=== PATIENT | male | born 1950 | race Caucasian/White ===

== ENCOUNTER 2016-10-29 14:35 | Emergency (ER) | payer MEDICARE, BC ==
[2016-10-29] MEDS ORDERED: MECLIZINE 12.5 MG TAB PO STA (16:27)
[2016-10-29 16:45] LABS: Basophils % (A) 1 %; CH 31.7; CHCM 34.9; Eosinophils # (A) 0.2 k/uL (0-0.7); Eosinophils % (A) 2 %; HCT 45.2 % (39.0-53.0); HGB 15.6 gm/dL (13.0-17.5); Luc # (Auto) 0.13; Luc % (Auto) 2; Lymphocytes # (A) 1.8 k/uL (1.0-4.8); Lymphocytes % (A) 24 %; MCH 31.4 pg (25.0-35.0); MCHC 34.5 g/dL (31.0-37.0); MCV 91.2 fL (80.0-100.0); Mean Platelet Volume 7.4; Monocytes # (A) 0.5 k/uL (0-1.0); Monocytes % (A) 6 %; Neutrophils % (A) 66 %; RBC 4.96 m/uL (4.30-5.90); RDW 13.2 % (11.5-15.5); WBC 7.6 k/uL (3.8-10.6); WBC (Perox) 7.04
[2016-10-29 16:53] LABS: ALT 25 U/L (21-72); AST 21 U/L (17-59); Alkaline Phosphatase 54 U/L (38-126); Anion Gap 10 mmol/L; Blood Urea Nitrogen 13 mg/dL (9-20); Calcium 9.8 mg/dL (8.4-10.2); Carbon Dioxide 24 mmol/L (22-30); Chloride 107 mmol/L (98-107); Glucose 81 mg/dL (74-99); Magnesium 2.3 mg/dL (1.6-2.3); Non-African American GFR(MDRD) >60 (>60 ml/min/1.73 sqM); Potassium 4.4 mmol/L (3.5-5.1); Sodium 141 mmol/L (137-145); Total Bilirubin 0.5 mg/dL (0.2-1.3); Total Protein 7.9 g/dL (6.3-8.2)
--- NOTE | 2016-10-29 16:55 | ED ---
General Adult HPI - General Chief complaint: Chest Pain Stated complaint: Chest Pain Time Seen by Provider: 10/29/16 16:13 Source: patient, RN notes reviewed, old records reviewed Mode of arrival: ambulatory Limitations: no limitations - History of Present Illness Initial comments: Chief complaint history of present illness a 66-year-old male to complaint of chest discomfort this morning. Started approximately 8 AM. He also has had vertigo for 3 weeks. Slightly very difficulty laying in bed. The vertigo was subsided. Discomfort to his chest been increasing and decreasing for several weeks if not months. Slightly burning and tight sensation. Recently diagnosed with a 4 cm abdominal aortic aneurysm. No abdominal pain. - Related Data Home Medications Medication Instructions Recorded Confirmed Atenolol [Tenormin] 50 mg PO BID 10/29/16 10/29/16 HYDROcodone/APAP 7.5-325MG [[place] 1 tab PO TID 10/29/16 10/29/16 7.5-325] Simvastatin [Zocor] 20 mg PO HS 10/29/16 10/29/16 Previous Rx's Medication Instructions Recorded Meclizine [Antivert] 25 mg PO TID #30 tab 10/29/16 Allergies Allergy/AdvReac Type Severity Reaction Status Date / Time No Known Allergies Allergy Verified 10/29/16 14:53 Review of Systems ROS Statement: Those systems with pertinent positive or pertinent negative responses have been documented in the HPI. Review of systems. Patient denies any visual acuity changes no headache slight dizziness when he moves his head much worse last night. No chest pain at this time no shortness of breath discomfort was not reproducible earlier. No GI/ problems complaints no neuro deficits. The patient denies any other problems all systems are reviewed. Past medical problems significant for coronary artery disease but no stents after having had a cardiac catheterization several years ago. Also hyperlipidemia, hypertension rheumatoid arthritis recently diagnosed abdominal aortic aneurysm on abdominal x-ray while having his back investigated. He has chronic back pain. As noted above had a heart catheterization without stenting. Is a joint replacements. Including a femur fracture carpal tunnel bilaterally. He does smoke strongly encouraged to stop denies alcohol use. ROS Other: All systems not noted in ROS Statement are negative. Past Medical History Past Medical History: Coronary Artery Disease (CAD), Hyperlipidemia, Hypertension, Rheumatoid Arthritis (RA) Additional Past Medical History / Comment(s): abd aneurysm,chronic back and hip pain History of Any Multi-Drug Resistant Organisms: None Reported Past Surgical History: Heart Catheterization, Joint Replacement Additional Past Surgical History / Comment(s): rt hip, lt knee,eugenie carpal tunnel Past Psychological History: Anxiety Smoking Status: Current every day smoker Past Alcohol Use History: None Reported Past Drug Use History: Marijuana General Exam - General Exam Comments Initial Comments: General: The patient is awake and alert, in no distress, and does not appear acutely ill. If complaint chest discomfort left side and dizziness for 3 weeks. Vital signs shows temperature 98.3 pulse 75 respiratory rate 20 pulse ox 95% room air blood pressure 205/97. Currently chest pain-free. Eye: Pupils are equal, round and reactive to light, extra-ocular movements are intact ; there is normal conjunctiva bilaterally. No signs of icterus. Ears, nose, mouth and throat: There are moist mucous membranes and no oral lesions. Neck: The neck is supple, there is no tenderness , no anterior cervical lymphadenopathy, no JVD. Cardiovascular: There is a regular rate and rhythm. No murmur, rub or gallop is appreciated. Respiratory: Lungs are clear to auscultation, respirations are non-labored, breath sounds are equal. No wheezes, stridor, rales, or rhonchi. Gastrointestinal: Soft, non-distended, non-tender abdomen without masses or organomegaly noted. There is no rebound or guarding present. No CVA tenderness. Bowel sounds are unremarkable. Back: There is no tenderness to palpation in the midline. There is no obvious deformity. No rashes noted. Musculoskeletal: Normal ROM, no tenderness, There is no pedal edema. There is no calf tenderness or swelling. Sensation intact. . Neurological: CN II-XII intact, There are no obvious motor or sensory deficits. Coordination appears grossly intact. Speech is normal. No focal or lateralizing findings. Dizziness increases with head movement. Skin: Skin is warm and dry and no rashes or lesions are noted. Limitations: no limitations Course Vital Signs 10/29/16 10/29/16 10/29/16 14:49 16:40 16:52 Temperature 98.3 F Pulse Rate 75 68 68 Respiratory 20 17 Rate Blood Pressure 205/97 154/92 180/96 O2 Sat by Pulse 95 98 97 Oximetry 10/29/16 17:23 Temperature Pulse Rate 67 Respiratory 99 H Rate Blood Pressure 148/89 O2 Sat by Pulse Oximetry EKG Findings - EKG Comments: EKG Findings:: EKG was done and reviewed compared to an EKG that had been performed at the doctor's office just prior to coming emergency room. Today's EKG showed normal sinus rhythm age undetermined inferior infarct. Today's Q waves significantly larger than that which was available or noticed on the EKG done in the office several hours ago. The patient's chest pain-free. Medical Decision Making - Medical Decision Making . The patient's white count 7.6 hemoglobin 15 hematocrit of 45 and INR 1.0. Potassium 4.4 BUN 13 creatinine 0.70 GFR greater than 60. Glucose 81 troponin less than 0.012. X-ray was done no acute cardiopulmonary pathology appreciated. Mildly enlarged heart. Awaiting radiologist's final impression. Examination finds patient blood pressure 150/80 feeling better. Not dizzy. We discussed discomfort to his chest as well as vertigo. The patient be placed on meclizine 25 3 times a day for 10 days advised to follow-up with family physician return emergency room as needed. - Lab Data Result diagrams: 10/29/16 16:32 10/29/16 16:32 Lab Results 10/29/16 10/29/16 10/29/16 Range/Units 16:32 16:32 16:32 WBC 7.6 (3.8-10.6) k/uL RBC 4.96 (4.30-5.90) m/uL Hgb 15.6 (13.0-17.5) gm/dL Hct 45.2 (39.0-53.0) % MCV 91.2 (80.0-100.0) fL MCH 31.4 (25.0-35.0) pg MCHC 34.5 (31.0-37.0) g/dL RDW 13.2 (11.5-15.5) % Plt Count 242 (150-450) k/uL Neutrophils % 66 % Lymphocytes % 24 % Monocytes % 6 % Eosinophils % 2 % Basophils % 1 % Neutrophils # 5.0 (1.3-7.7) k/uL Lymphocytes # 1.8 (1.0-4.8) k/uL Monocytes # 0.5 (0-1.0) k/uL Eosinophils # 0.2 (0-0.7) k/uL Basophils # 0.0 (0-0.2) k/uL PT (9.0-12.0) sec INR (<1.1) APTT (22.0-30.0) sec Sodium 141 (137-145) mmol/L Potassium 4.4 (3.5-5.1) mmol/L Chloride 107 (98-107) mmol/L Carbon Dioxide 24 (22-30) mmol/L Anion Gap 10 mmol/L BUN 13 (9-20) mg/dL Creatinine 0.78 (0.66-1.25) mg/dL Est GFR (MDRD) Af Amer >60 (>60 ml/min/1.73 sqM) Est GFR (MDRD) Non-Af >60 (>60 ml/min/1.73 sqM) Glucose 81 (74-99) mg/dL Calcium 9.8 (8.4-10.2) mg/dL Magnesium 2.3 (1.6-2.3) mg/dL Total Bilirubin 0.5 (0.2-1.3) mg/dL AST 21 (17-59) U/L ALT 25 (21-72) U/L Alkaline Phosphatase 54 (38-126) U/L Total Creatine Kinase 129 (55-170) U/L CK-MB (CK-2) 1.8 (0.0-2.4) ng/mL CK-MB (CK-2) Rel Index 1.4 Troponin I <0.012 (0.000-0.034) ng/mL Total Protein 7.9 (6.3-8.2) g/dL Albumin 4.6 (3.5-5.0) g/dL 10/29/16 Range/Units 16:32 WBC (3.8-10.6) k/uL RBC (4.30-5.90) m/uL Hgb (13.0-17.5) gm/dL Hct (39.0-53.0) % MCV (80.0-100.0) fL MCH (25.0-35.0) pg MCHC (31.0-37.0) g/dL RDW (11.5-15.5) % Plt Count (150-450) k/uL Neutrophils % % Lymphocytes % % Monocytes % % Eosinophils % % Basophils % % Neutrophils # (1.3-7.7) k/uL Lymphocytes # (1.0-4.8) k/uL Monocytes # (0-1.0) k/uL Eosinophils # (0-0.7) k/uL Basophils # (0-0.2) k/uL PT 9.9 (9.0-12.0) sec INR 1.0 (<1.1) APTT 23.7 (22.0-30.0) sec Sodium (137-145) mmol/L Potassium (3.5-5.1) mmol/L Chloride (98-107) mmol/L Carbon Dioxide (22-30) mmol/L Anion Gap mmol/L BUN (9-20) mg/dL Creatinine (0.66-1.25) mg/dL Est GFR (MDRD) Af Amer (>60 ml/min/1.73 sqM) Est GFR (MDRD) Non-Af (>60 ml/min/1.73 sqM) Glucose (74-99) mg/dL Calcium (8.4-10.2) mg/dL Magnesium (1.6-2.3) mg/dL Total Bilirubin (0.2-1.3) mg/dL AST (17-59) U/L ALT (21-72) U/L Alkaline Phosphatase (38-126) U/L Total Creatine Kinase (55-170) U/L CK-MB (CK-2) (0.0-2.4) ng/mL CK-MB (CK-2) Rel Index Troponin I (0.000-0.034) ng/mL Total Protein (6.3-8.2) g/dL Albumin (3.5-5.0) g/dL Disposition Clinical Impression: Vertigo Disposition: HOME SELF-CARE Condition: Good Instructions: Vertigo (ED) Additional Instructions: Take meclizine 3 times daily for 10 days. Rest relax follow-up with family physician continue with here antihypertensives. Return emergency room with any changes. Prescriptions: Meclizine [Antivert] 25 mg PO TID #30 tab Referrals: Shawna Felipe III, MD [Primary Care Provider] - 1-2 days Time of Disposition: 17:58
[2016-10-29] MEDS ORDERED: cloNIDine HCL 0.2 MG TAB PO STA (17:00)
[2016-10-29 17:07] LABS: Creatine Kinase 129 U/L (55-170)
[2016-10-29 17:10] LABS: Partial Thromboplastin Time 23.7 sec (22.0-30.0); Prothrombin Time 9.9 sec (9.0-12.0)
[2016-10-29 17:19] LABS: Creatine Kinase MB 1.8 ng/mL (0.0-2.4); Troponin I <0.012 ng/mL (0.000-0.034)
[2016-10-29 18:10] VITALS: BP 157/92; PULSE 70; RESP 18
--- NOTE | 2016-10-29 18:11 | XR ---
Exam: FILM CXR Chest PA and lateral views INDICATION: Chest pain COMPARISON: None FINDINGS: The cardiomediastinal silhouette is within normal limits. Lungs are clear. No pleural effusions. Bony elements are within normal limits for age. No acute osseous abnormality. IMPRESSION: No acute cardiopulmonary disease. Lungs are clear. Heart size normal.
[2016-10-29 18:13] VITALS: TEMP 98
== END 2016-10-29 18:12 | disposition home or self-care (01) ==
LOC: EC 14:35
DX: I51.7 Cardiomegaly (principal); R42 Dizziness and giddiness; E78.5 Hyperlipidemia, unspecified; I10 Essential (primary) hypertension; G89.29 Other chronic pain; F41.9 Anxiety disorder, unspecified; F17.200 Nicotine dependence, unspecified, uncomplicated; Z79.891 Long term (current) use of opiate analgesic; Z79.899 Other long term (current) drug therapy; Z95.818 Presence of other cardiac implants and grafts
CPT/HCPCS: 36415; 71020; 80053; 82550; 82553; 83735; 84484; 85025; 85610; 85730; 93005; 99285

== ENCOUNTER 2018-09-17 10:53 | Day surgery (SDC) | payer BC, MEDICARE ==
[2018-09-12 09:43] VITALS: BMI 31.5
[~2018-09-17 10:53] MED LIST: LACTATED RINGERS 1,000 ML IV SCH; LIDOCAINE 1% 20 ML VIAL (10MG/ML) FOR IV START INTRADERMA PRN
[2018-09-17 11:13] VITALS: TEMP 97.6
[2018-09-17] MEDS ORDERED: PROPOFOL 10 MG/ML 20 ML VIAL IV ONE (12:24)
--- NOTE | 2018-09-17 12:28 | P.GSHP ---
History of Present Illness H&P Date: 09/17/18 Chief Complaint: Blood in stool Patient here today for colonoscopy. Recent stool test showed blood in stool. Family history of liver cancer but no colon cancer. Patient states he has hemorrhoids that bleed occasionally. No previous colonoscopy. Past Medical History Past Medical History: Coronary Artery Disease (CAD), Hyperlipidemia, Hypertension, Rheumatoid Arthritis (RA) Additional Past Medical History / Comment(s): 5CM abd aneurysm MEASURED ON ULTRA SOUND BY DR. PADILLA 09/11/18- 6 MONTHS AGO WAS MEASURED AT 4/.8 CM. chronic back and hip pain. positive cologard test. HEMORRHOIDS History of Any Multi-Drug Resistant Organisms: None Reported Past Surgical History: Heart Catheterization, Joint Replacement Additional Past Surgical History / Comment(s): rt [place], lt knee sx, eugenie carpal tunnel. lt wrist sx, sx for fx femur after hip sx Past Anesthesia/Blood Transfusion Reactions: No Reported Reaction Smoking Status: Current every day smoker - Past Family History Brother(s) Family Medical History: Cancer Additional Family Medical History / Comment(s): 2 brothers that from liver cancer AGE 45 AND 50 POSSIBLY R/T TRANSFUSIONS Medications and Allergies Home Medications Medication Instructions Recorded Confirmed Type Atenolol [Tenormin] 50 mg PO DAILY 10/29/16 09/17/18 History HYDROcodone/APAP 7.5-325MG [[place] 1 tab PO TID 10/29/16 09/17/18 History 7.5-325] Atorvastatin [Lipitor] 10 mg PO HS 09/12/18 09/17/18 History Ibuprofen [Motrin] 600 mg PO Q8HR PRN 09/12/18 09/17/18 History Lisinopril [Zestril] 5 mg PO DAILY 09/12/18 09/17/18 History Allergies Allergy/AdvReac Type Severity Reaction Status Date / Time No Known Allergies Allergy Verified 09/17/18 11:05 Surgical - Exam Vital Signs Temp Pulse Resp BP Pulse Ox 97.6 F 101 H 16 145/78 96 09/17/18 11:11 09/17/18 11:11 09/17/18 11:11 09/17/18 11:11 09/17/18 11:11 Physical exam: General: Well-developed, well-nourished HEENT: Normocephalic, sclerae nonicteric Abdomen: Nontender, nondistended Extremities: No edema Neuro: Alert and oriented Assessment and Plan (1) Blood in stool Narrative/Plan: Will proceed with colonoscopy at this time Current Visit: Yes Status: Acute Code(s): K92.1 - MELENA SNOMED Code(s): 092781003
--- NOTE | 2018-09-17 12:47 | P.PCN ---
Date of Procedure: 09/17/18 Procedure(s) Performed: PREOPERATIVE DIAGNOSIS: Blood in stool POSTOPERATIVE DIAGNOSIS: Ascending colon polyp, rectal polyp, diverticulosis PROCEDURE: Colonoscopy with snare polypectomy ANESTHESIA: MAC SURGEON: Darrion Jamison M.D. SPECIMENS: Polyps ENDOSCOPIC PROCEDURE: The patient was placed on the endoscopy table in the left decubitus position. The Olympus colonoscope was inserted into the anus and passed under direct visualization to the base of the cecum. The appendiceal orifice was visualized. From that point the scope was slowly withdrawn inspecting all surfaces carefully. There were no neoplastic inflammatory or polypoid lesions throughout the cecum. In the mid ascending colon a sessile polyp measuring approximately 1.5 cm was removed in a piecemeal fashion using the snare with cautery technique. Tissue was sent for evaluation. The remainder of the ascending transverse descending and sigmoid colon appeared normal. There was a rectal polyp identified and removed in a similar fashion. There was mild left sided diverticulosis. The patient's prep was slightly suboptimal. Digital rectal examination was normal. The patient was taken to the recovery room in stable condition per anesthesia guidelines. RECOMMENDATIONS: Wait biopsy results. Recommend follow-up colonoscopy 6 months.
[2018-09-17 13:07] VITALS: BP 131/84; PULSE 84; RESP 18
== END 2018-09-17 13:25 | disposition home or self-care (01) ==
LOC: ORWHC2ENDO 10:53
PROVIDERS: ATTEND Surgery
DX: D12.2 Benign neoplasm of ascending colon (principal); D12.8 Benign neoplasm of rectum; K57.30 Diverticulosis of large intestine without perforation or abscess without bleeding; I25.10 Atherosclerotic heart disease of native coronary artery without angina pectoris; I10 Essential (primary) hypertension; F17.210 Nicotine dependence, cigarettes, uncomplicated; K21.9 Gastro-esophageal reflux disease without esophagitis; E78.5 Hyperlipidemia, unspecified; M06.9 Rheumatoid arthritis, unspecified; I71.4 Abdominal aortic aneurysm, without rupture; G89.29 Other chronic pain; M54.9 Dorsalgia, unspecified; M25.559 Pain in unspecified hip; Z80.0 Family history of malignant neoplasm of digestive organs; Z79.891 Long term (current) use of opiate analgesic; Z79.899 Other long term (current) drug therapy
CPT/HCPCS: 45385; 88305; J2704

== ENCOUNTER 2022-05-14 12:09 | Emergency (ER) | payer MEDICARE ==
[2022-05-14 12:18] VITALS: TEMP 98.5
--- NOTE | 2022-05-14 12:48 | ED ---
Chest Pain HPI - General Chief Complaint: Chest Pain Stated Complaint: dehydration, weakness Time Seen by Provider: 05/14/22 12:45 Source: patient Mode of arrival: ambulatory Limitations: no limitations - History of Present Illness Initial Comments: 71-year-old male with past medical history of rheumatoid arthritis, coronary artery disease, hypertension, abdominal aortic aneurysm with repair who presents to the emergency department reporting exertional dyspnea and chest pain. states that he has been complaining of shortness of breath and dyspnea over the weekend. He had significant chest pain yesterday and this morning. Upon arrival to the hospital he is pain free. He states that he does have coronary artery disease but denies stent placement. He does have previous history of aneurysm with repair. He denies any abdominal pain. Ripping or tearing sensation to his back. No numbness, tingling or weakness in his extremities. No fevers. Denies cough. Patient saw his accessioner on for a routine appointments. He then saw his primary care on Saturday. They were concerned and was going to order a CT of his chest however patient did not have it completed just yet. No other alleviating, precipitating or modifying factors - Related Data Home Medications Medication Instructions Recorded Confirmed HYDROcodone/APAP 7.5-325MG [[place] 1 tab PO TID 10/29/16 05/14/22 7.5-325] atenoloL [Tenormin] 50 mg PO HS 10/29/16 05/14/22 Ibuprofen [Motrin] 600 mg PO Q8HR PRN 09/12/18 05/14/22 Aspirin 81 mg PO HS 05/14/22 05/14/22 Atorvastatin [Lipitor] 20 mg PO HS 05/14/22 05/14/22 Cholecalciferol (Vitamin D3) 75 mcg PO DAILY 05/14/22 05/14/22 [Vitamin D3 (3000 Iu)] Multivitamins, Thera [Multivitamin 1 tab PO DAILY 05/14/22 05/14/22 (formulary)] Omeprazole [PriLOSEC] 20 mg PO DAILY PRN 05/14/22 05/14/22 lisinopriL [Zestril] 10 mg PO HS 05/14/22 05/14/22 Allergies Allergy/AdvReac Type Severity Reaction Status Date / Time No Known Allergies Allergy Verified 05/14/22 14:24 Review of Systems ROS Statement: Those systems with pertinent positive or pertinent negative responses have been documented in the HPI. ROS Other: All systems not noted in ROS Statement are negative. EKG Findings - EKG Comments: EKG Findings:: EKG demonstrates sinus rhythm with rate of 85. AR 144. QRS 93. QTC of 414. No acute ST segment elevations or depressions. Past Medical History Past Medical History: Coronary Artery Disease (CAD), Hyperlipidemia, Hypertension, Rheumatoid Arthritis (RA) Additional Past Medical History / Comment(s): 5CM abd aneurysm MEASURED ON ULTRA SOUND BY DR. PADILLA 09/11/18- 6 MONTHS AGO WAS MEASURED AT 4/.8 CM. chronic back and hip pain. positive cologard test. HEMORRHOIDS History of Any Multi-Drug Resistant Organisms: None Reported Past Surgical History: Heart Catheterization, Joint Replacement Additional Past Surgical History / Comment(s): rt paula, lt knee sx, eugenie carpal tunnel. lt wrist sx, sx for fx femur after hip sx Past Anesthesia/Blood Transfusion Reactions: No Reported Reaction Past Psychological History: Anxiety Smoking Status: Current every day smoker Past Alcohol Use History: None Reported Past Drug Use History: Marijuana - Past Family History Brother(s) Family Medical History: Cancer Additional Family Medical History / Comment(s): 2 brothers that from liver cancer AGE 45 AND 50 POSSIBLY R/T TRANSFUSIONS General Exam Limitations: no limitations General appearance: alert, in no apparent distress Head exam: Present: atraumatic, normocephalic, normal inspection Eye exam: Present: normal appearance, PERRL, EOMI. Absent: scleral icterus, conjunctival injection, periorbital swelling ENT exam: Present: normal exam, mucous membranes moist Neck exam: Present: normal inspection. Absent: tenderness, meningismus, lymphadenopathy Respiratory exam: Present: normal lung sounds bilaterally. Absent: respiratory distress, wheezes, rales, rhonchi, stridor Cardiovascular Exam: Present: regular rate, normal rhythm, normal heart sounds. Absent: systolic murmur, diastolic murmur, rubs, gallop, clicks GI/Abdominal exam: Present: soft, normal bowel sounds. Absent: distended, tenderness, guarding, rebound, rigid Extremities exam: Present: normal inspection, full ROM, normal capillary refill. Absent: tenderness, pedal edema, joint swelling, calf tenderness Back exam: Present: normal inspection Neurological exam: Present: alert, oriented X3, CN II-XII intact Psychiatric exam: Present: normal affect, normal mood Skin exam: Present: rash, pallor Course Vital Signs 05/14/22 05/14/22 05/14/22 12:14 12:57 12:58 Temperature 98.5 F Pulse Rate 60 83 Pulse Rate [ 87 Mill Feeder ] Respiratory 22 24 Rate Blood Pressure 86/49 88/45 O2 Sat by Pulse 95 96 Oximetry 05/14/22 05/14/22 05/14/22 13:00 13:02 13:56 Temperature Pulse Rate 86 84 75 Pulse Rate [ Mill Feeder ] Respiratory 17 24 26 H Rate Blood Pressure 88/45 107/61 81/51 O2 Sat by Pulse 95 95 97 Oximetry 05/14/22 05/14/22 05/14/22 14:00 15:00 16:00 Temperature Pulse Rate 74 77 86 Pulse Rate [ Mill Feeder ] Respiratory 13 20 13 Rate Blood Pressure 81/51 102/56 111/61 O2 Sat by Pulse 96 98 99 Oximetry 05/14/22 05/14/22 17:00 21:00 Temperature Pulse Rate 84 92 Pulse Rate [ Mill Feeder ] Respiratory 20 16 Rate Blood Pressure 126/66 O2 Sat by Pulse 96 96 Oximetry - Reevaluation(s) Reevaluation #1: Spoke with Dr. Perez. He is on his way to evaluate the patient himself 05/14/22 15:27 Reevaluation #2: Spoke with Dr. Padilla 05/14/22 15:28 Chest Pain MDM - MDM Was pt. sent in by a medical professional or institution (, PA, MACHINE GUNNER, urgent care, hospital, or senior care...) When possible be specific @ -Primary care office Did you speak to anyone other than the patient for history (EMS, parent, family, police, friend...)? What history was obtained from this source @ -, daughter Did you review nursing and triage notes (agree or disagree)? Why? @ -[I reviewed and agree with nursing and triage notes] Were old charts reviewed (outside hosp., previous admission, EMS record, old EKG, old radiological studies, urgent care reports/EKG's, senior care records)? Report findings @ -I reviewed the patient's previous hospitalizations including blood work from May 02 which demonstrated normal hemoglobin of 12.7 Differential Diagnosis (chest pain, altered mental status, abdominal pain women, abdominal pain men, vaginal bleeding, weakness, fever, dyspnea, syncope, headache, dizziness, GI bleed, back pain, seizure, CVA, palpatations, mental health)? @ Differential Chest Pain: Stable Angina, Unstable Angina, STEMI, NSTEMI Aortic Dissection, Pneumothorax, Musculoskeletal, Esophageal Spasm GERD, Cholecystitis, Pancreatitis, Zoster, this is not meant to be an all-inclusive list. EKG interpreted by me (3pts min.). @ -Yes X-rays interpreted by me (1pt min.). @ -Not done CT interpreted by me (1pt min.). @ -Yes U/S interpreted by me (1pt. min.). @ -[None done] What testing was considered but not performed or refused? (CT, X-rays, U/S, labs)? Why? @ -[None] What meds were considered but not given or refused? Why? @ -[None] Did you discuss the management of the patient with other professionals (professionals i.e. , PA, MACHINE GUNNER, lab, RT, psych nurse, forensic social worker, director trial, teacher, grants officer, welfare case worker)? Give summary @ -I discussed the management of the patient with the inside sales trainer Dr. Gaffney, Dr. Savage the oncologist, Dr. Padilla the hospitalist and two hospitalist down at [facility] Was smoking cessation discussed for >3mins.? @ -[No] Was critical care preformed (if so, how long)? @ yes, 76 minutes Were there social determinants of health that impacted care today? How? (Homelessness, low income, unemployed, alcoholism, drug addiction, transportation, low edu. Level, literacy, decrease access to med. care, care home, rehab)? @ -[No] Was there de-escalation of care discussed even if they declined (Discuss DNR or withdrawal of care, Hospice)? DNR status yes What co-morbidities impacted this encounter? (DM, HTN, Smoking, COPD, CAD, Cancer, CVA, ARF, Chemo, Hep., AIDS, mental health diagnosis, sleep apnea, morbid obesity)? Hypertension, rheumatoid arthritis Was patient admitted / discharged? Hospital course, mention meds given and route, prescriptions, significant lab abnormalities, going to OR and other pertinent info. Upon arrival the patient was placed into room 24. A thorough history and physical exam was performed. IV access is established and laboratory studies are conducted. Patient remains on continuous pulse ox and cardiac monitoring. A 12-lead EKG was performed which was unremarkable. I did start receiving laboratory studies back on the patient which demonstrates a white blood count of 65.6 and hemoglobin of 4.9. I did repeat this to confirm. Patient does have a 57% blast cells. D-dimer is 2.96. Patient is sent for CT of his chest which demonstrates multiple spiculated lesions concerning for malignancy. I did discuss this with the patient. I discussed the case with Dr. Ireland. He does present to the emergency department and evaluates the patient. We also spoke with Dr. Savage to see whether the patient can remain at our facility for evaluation. I did speak with blood bank. We have no irradiated a positive blood. It must be transported in. I did order 2 units stat for which I am told it is 2-4 hours before the blood will be available. As we do not have readily available blood products it is recommended that the patient be transferred to an outside facility that does have a larger blood supply. I called [facility] and spoke with Dr. Mcneal and . I do accept the patient for transfer at 1634 and 1644. We do wait a significant period of time before we are awarded to bed number. Patient is formally accepted at 2030 into the ICU and will be transferred via EMS. At this time but has still not arrived for the patient's and we are told it is still another hour before arrival. Patient did receive 2 g of cefepime, 1500 mg of vancomycin and a dose of Vfend. Undiagnosed new problem with uncertain prognosis? @ -Yes Drug Therapy requiring intensive monitoring for toxicity (Heparin, Nitro, Insulin, Cardizem)? @ -No Were any procedures done? @ -[No] Diagnosis/symptom? 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 Acute Uncomplicated (without systemic symptoms) or Complicated (systemic symptoms)? Complicated Side effects of treatment? @ -[No] Exacerbation, Progression, or Severe Exacerbation? @ -[No] Poses a threat to life or bodily function? How? (Chest pain, [place], [place], pneumonia, PE, COPD, DKA, ARF, appy, cholecystitis, CVA, Diverticulitis, Homicidal, Suicidal, threat to staff... and all critical care pts) Yes prognosis is very poor and the patient Disposition Clinical Impression: Exertional dyspnea, Lung mass, Leukocytosis, Thrombocytopenia, Chest pain, Anemia Disposition: OTHER INSTITUTION NOT DEFINED Condition: Stable Is patient prescribed a controlled substance at d/c from ED?: No Referrals: Nitza Jamison MD [Primary Care Provider] - 1-2 days Time of Disposition: 15:17 - Out of Hospital Transfer - Req. Specs Out of Hospital Transfer - Requested Specifics: Medical ICU ([facility])
[2022-05-14 13:02] LABS: Anisocytosis Slight; Hyperchromasia Slight; MCH 34.8 pg (25.0-35.0); MCHC 34.8 g/dL (31.0-37.0); MCV 100.1 fL (80.0-100.0); Macrocytosis Moderate; Poikilocytosis Slight; RBC 1.42 m/uL (4.30-5.90); RDW 19.7 % (11.5-15.5)
[2022-05-14 13:21] LABS: HCT 14.2 % (39.0-53.0); HGB 4.9 gm/dL (13.0-17.5); WBC 65.6 k/uL (3.8-10.6)
[2022-05-14 13:23] LABS: ALT 37 U/L (4-49); AST 235 U/L (17-59); African American GFR (CKD) >90 (>60 ml/min/1.73 sqM); Albumin 3.2 g/dL (3.5-5.0); Alkaline Phosphatase 93 U/L (38-126); Anion Gap 9 mmol/L; Blood Urea Nitrogen 26 mg/dL (9-20); Calcium 7.4 mg/dL (8.4-10.2); Carbon Dioxide 20 mmol/L (22-30); Chloride 102 mmol/L (98-107); Glucose 118 mg/dL (74-99); INR 1.2 (<1.2); Lipase 117 U/L (23-300); Magnesium 2.6 mg/dL (1.6-2.3); Non-African American GFR(CKD) 81 (>60 ml/min/1.73 sqM); Partial Thromboplastin Time 23.9 sec (22.0-30.0); Potassium 4.4 mmol/L (3.5-5.1); Prothrombin Time 12.4 sec (9.0-12.0); Sodium 131 mmol/L (137-145); Total Bilirubin 0.8 mg/dL (0.2-1.3); Total Protein 6.3 g/dL (6.3-8.2)
[2022-05-14 13:45] LABS: Blast Cells # (M) 30.83 k/uL (0); Lymphocytes # (M) 33.46 k/uL (1.0-4.8); Monocytes # (M) 1.97 k/uL (0-1.0); Neutrophils # (M) 0.66 k/uL (1.3-7.7); Neutrophils % (M) 1 %; Nucleated Red Blood Cells 0 /100 WBC (0-0); Total Cells Counted 200
[2022-05-14 13:50] LABS: Platelet Count 49 k/uL (150-450)
[2022-05-14 14:05] LABS: Anisocytosis Slight; Hyperchromasia Slight; MCH 33.5 pg (25.0-35.0); MCHC 33.6 g/dL (31.0-37.0); MCV 99.9 fL (80.0-100.0); Macrocytosis Moderate; Mean Platelet Volume 8.2; Poikilocytosis Slight; RBC 1.29 m/uL (4.30-5.90); RDW 19.7 % (11.5-15.5)
[2022-05-14 14:06] LABS: WBC 64.6 k/uL (3.8-10.6)
[2022-05-14 14:09] LABS: HCT 12.9 % (39.0-53.0); HGB 4.3 gm/dL (13.0-17.5); Platelet Count 47 k/uL (150-450)
--- NOTE | 2022-05-14 14:33 | CT ---
EXAMINATION TYPE: CT chest angio for PE CT DLP: 532.1 mGycm, Automated exposure control for dose reduction was used. DATE OF EXAM: 05/14/2022 2:21 PM COMPARISON: Chest radiograph 10/29/2016. CLINICAL INDICATION:Male, 71 years old with history of exertional sob, chest pain; Chest pain and sob onset x 1 week TECHNIQUE/CONTRAST: CTA scan of the thorax is performed with IV Contrast, patient injected with 100 cc mL of Isovue 370, pulmonary embolism protocol. MIP images are created and reviewed. FINDINGS: Pulmonary Artery: There is no evidence for a filling defect within the pulmonary vasculature to sugge st acute pulmonary embolism. The pulmonary artery is of normal size. Lungs/Pleura: No pleural effusion or pneumothorax. Moderate to severe centrilobular emphysematous rain nges. Diffuse patchy reticular groundglass opacities throughout the lungs which may be related to air trapping. Spiculated masslike consolidation within the posterior aspect of the left upper lobe measu ring 5.5 x 3.9 cm (series 406, image 38) with additional spiculated nodule within the right midlung m easuring 1.3 x 1.6 cm (series 4 cm, image 68). Spiculated masslike consolidation within the left midl aleksandar measuring 2.1 x 2.0 cm (series 406, image 80). Spiculated masslike consolidation within the super ior segment of the left lower lobe measuring 3.5 x 3.2 cm (series 406, image 73). Spiculated masslike consolidation adjacent to this just inferolateral in the left lower lobe measuring 2.7 x 2.1 cm (ser ies 406, image 88). Airway: Large airways are patent. Heart: Heart is within normal limits for size. No pericardial effusion. Vasculature: No evidence of aortic aneurysm. Partial visualization of abdominal aortic stent graft. Mediastinum: Multiple enlarged mediastinal and bilateral hilar lymph nodes with exams including a rig ht paratracheal lymph node measuring 1.9 cm short axis and a subcarinal lymph node measuring 1.3 cm s hort axis. Musculoskeletal: No acute osseous abnormalities. No aggressive osseous lesion. Soft Tissues: Unremarkable. Lower neck: No significant findings. Upper Abdomen: No significant findings. IMPRESSION: 1. No evidence of pulmonary embolism. 2. 5 total spiculated masslike consolidations within the lungs concerning for malignancy. Consider fu rther evaluation with PET/CT and/or tissue sampling. 3. Mediastinal and bilateral hilar adenopathy suspicious for metastasis. 4. [id number] COPD changes. 5. Reticular groundglass opacities throughout the lungs which may result in air trapping versus pneum onitis.
[2022-05-14 14:55] LABS: Blast Cells # (M) 36.82 k/uL (0); Lymphocytes # (M) 27.13 k/uL (1.0-4.8); Monocytes # (M) 0.65 k/uL (0-1.0); Neutrophils # (M) 0.65 k/uL (1.3-7.7); Neutrophils % (M) 1 %; Nucleated Red Blood Cells 0 /100 WBC (0-0); Total Cells Counted 200
[2022-05-14] MEDS ORDERED: VANCOMYCIN IV PER PHARMACY 1 EACH MISC MISCELLANE PRN (15:40)
[2022-05-14] MEDS ORDERED: VANCOMYCIN 1,500 MG in SODIUM CHLORIDE 0.9% 500 ML 500 ML IVPB ONE (16:00)
--- NOTE | 2022-05-14 16:20 | P.CNPUL ---
History of Present Illness Consult date: 05/14/22 Reason for consult: dyspnea History of present illness: This is a 71-year-old male patient, presented to the hospital because of generalized weakness, lethargy, dehydration, loss and energy and worsening shortness of breath. The patient started having the symptoms approximately a few weeks back. He was given a Medrol Dosepak on outpatient basis with some limited improvement. Today and up in the emergency and the blood test was significantly abnormal with a WBC count of 64, hemoglobin of 4.3 and a platelet count of 47. The patient had 57% blasts. The d-dimer is at 2.96 with a normal coagulation profile. BUN is at 26 with a creatinine of 0.9 and a sodium level of 131. AST was 235, ALT was 37, proBNP level was 1620. CAT scan of the chest was done and it showed areas of groundglass opacities throughout the lungs in addition to spiculated masslike consolidation in the posterior aspect of the left upper lobe measuring 5.5 cm and on this particular nodule in the right midlung measuring 1.6 cm anesthetic-related consolidation in the left midlung measuring 2.1 cm anesthetic-related masslike consolidation subcu segment of the left lower lobe measuring 3.5 cm and on respirator masslike consolidation adjacent to the anterolateral left lower lobe measuring 2.7 cm. The patient had multiple enlarged mediastinal and bilateral hilar lymph nodes the largest being in the right paratracheal area measuring 1.9 cm and in the subcarinal area. The patient had moderate to severe changes of emphysema. A total of 5 spiculated masslike consolidations are seen on the CAT scan. The patient currently is free of any chest pain. No hemoptysis. He was having episodes of fever on an outpatient basis. His blood pressure is soft and the systolic blood pressures in the mid 90s. His breathing is labored even at rest. No altered mentation.. 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 Review of Systems excess fatigue, tiredness, and fever along with shortness of breath essentially exertional. Past Medical History Past Medical History: Coronary Artery Disease (CAD), COPD, Hyperlipidemia, Hypertension, Rheumatoid Arthritis (RA) Additional Past Medical History / Comment(s): 5CM abd aneurysm MEASURED ON ULTRA SOUND BY DR. PADILLA 5/23/19- 6 MONTHS AGO WAS MEASURED AT 4/.8 CM. chronic back and hip pain. positive cologard test. HEMORRHOIDS. fibromyalgia History of Any Multi-Drug Resistant Organisms: None Reported Past Surgical History: Heart Catheterization, Joint Replacement Additional Past Surgical History / Comment(s): rt paula, lt knee sx, eugenie carpal tunnel. lt wrist sx, sx for fx femur after hip sx Past Anesthesia/Blood Transfusion Reactions: No Reported Reaction Past Psychological History: Anxiety Smoking Status: Current every day smoker Past Alcohol Use History: None Reported Past Drug Use History: Marijuana - Past Family History Brother(s) Family Medical History: Cancer Additional Family Medical History / Comment(s): 2 brothers that from liver cancer AGE 45 AND 50 POSSIBLY R/T TRANSFUSIONS Medications and Allergies Home Medications Medication Instructions Recorded Confirmed Type HYDROcodone/APAP 7.5-325MG [[place] 1 tab PO TID 10/29/16 05/14/22 History 7.5-325] atenoloL [Tenormin] 50 mg PO HS 10/29/16 05/14/22 History Ibuprofen [Motrin] 600 mg PO Q8HR PRN 09/12/18 05/14/22 History Aspirin 81 mg PO HS 05/14/22 05/14/22 History Atorvastatin [Lipitor] 20 mg PO HS 05/14/22 05/14/22 History Cholecalciferol (Vitamin D3) 75 mcg PO DAILY 05/14/22 05/14/22 History [Vitamin D3 (3000 Iu)] Multivitamins, Thera [Multivitamin 1 tab PO DAILY 05/14/22 05/14/22 History (formulary)] Omeprazole [PriLOSEC] 20 mg PO DAILY PRN 05/14/22 05/14/22 History lisinopriL [Zestril] 10 mg PO HS 05/14/22 05/14/22 History Allergies Allergy/AdvReac Type Severity Reaction Status Date / Time No Known Allergies Allergy Verified 05/14/22 14:24 Physical Exam Vitals: Vital Signs Temp Pulse Pulse Resp BP Pulse Ox 05/14/22 13:56 75 26 H 81/51 97 05/14/22 13:02 84 24 107/61 95 05/14/22 12:58 87 05/14/22 12:57 83 24 88/45 96 05/14/22 12:14 98.5 F 60 22 86/49 95 Intake and Output 05/14/22 05/14/22 05/14/22 06:59 14:59 22:59 Other: Weight 91.626 kg The patient appeared well nourished and normally developed.the patient is pale. The patient is a mild degree of respiratory distress. The patient is currently on 2 L of O2 nasal cannula. Vital signs as documented. Head exam is unremarkable. No scleral icterus or corneal arcus noted. Neck is without jugular venous distension, thyromegaly, or carotid bruits. Carotid upstrokes are brisk bilaterally. Lungs are clear to auscultation and percussion. Cardiac exam reveals the PMI to be normally sized and situated. Rhythm is regular. First and second heart sounds normal. No murmurs, rubs or gallops. Abdominal exam reveals normal bowel sounds, no masses, no organomegaly and no aortic enlargement. Extremities are nonedematous and both femoral and pedal pulses are normal.Examination of the skin revealed no evidence of significant rashes, suspicious appearing nevi or other concerning lesions.Neurologically, the patien t is awake and alert and the patient does not have any focal neurological deficit. Cranial nerves are essentially intact. Results - Laboratory Findings CBC and BMP: 05/14/22 13:50 05/14/22 12:51 ABG WBC 64.6 k/uL (3.8-10.6) H* 05/14/22 13:50 RBC 1.29 m/uL (4.30-5.90) L 05/14/22 13:50 Hgb 4.3 gm/dL (13.0-17.5) L* 05/14/22 13:50 Hct 12.9 % (39.0-53.0) L* 05/14/22 13:50 MCV 99.9 fL (80.0-100.0) 05/14/22 13:50 MCH 33.5 pg (25.0-35.0) 05/14/22 13:50 MCHC 33.6 g/dL (31.0-37.0) 05/14/22 13:50 RDW 19.7 % (11.5-15.5) H 05/14/22 13:50 Plt Count 47 k/uL (150-450) L 05/14/22 13:50 MPV 8.2 05/14/22 13:50 Neutrophils % (Manual) 1 % 05/14/22 13:50 Lymphocytes % (Manual) 42 % 05/14/22 13:50 Monocytes % (Manual) 1 % 05/14/22 13:50 Blast Cells % 57 % H* 05/14/22 13:50 Neutrophils # (Manual) 0.65 k/uL (1.3-7.7) L 05/14/22 13:50 Lymphocytes # (Manual) 27.13 k/uL (1.0-4.8) H 05/14/22 13:50 Monocytes # (Manual) 0.65 k/uL (0-1.0) 05/14/22 13:50 Blast Cells # (Man) 36.82 k/uL (0) H 05/14/22 13:50 Nucleated RBCs 0 /100 WBC (0-0) 05/14/22 13:50 Manual Slide Review Performed 05/14/22 13:50 Hyperchromasia Slight 05/14/22 13:50 Poikilocytosis Slight 05/14/22 13:50 Anisocytosis Slight 05/14/22 13:50 Macrocytosis Moderate 05/14/22 13:50 PT 12.4 sec (9.0-12.0) H 05/14/22 12:51 INR 1.2 (<1.2) H 05/14/22 12:51 APTT 23.9 sec (22.0-30.0) 05/14/22 12:51 D-Dimer 2.96 mg/L FEU (<0.60) H 05/14/22 12:51 Sodium 131 mmol/L (137-145) L 05/14/22 12:51 Potassium 4.4 mmol/L (3.5-5.1) 05/14/22 12:51 Chloride 102 mmol/L (98-107) 05/14/22 12:51 Carbon Dioxide 20 mmol/L (22-30) L 05/14/22 12:51 Anion Gap 9 mmol/L 05/14/22 12:51 BUN 26 mg/dL (9-20) H 05/14/22 12:51 Creatinine 0.95 mg/dL (0.66-1.25) 05/14/22 12:51 Est GFR (CKD-EPI)AfAm >90 (>60 ml/min/1.73 sqM) 05/14/22 12:51 Est GFR (CKD-EPI)NonAf 81 (>60 ml/min/1.73 sqM) 05/14/22 12:51 Glucose 118 mg/dL (74-99) H 05/14/22 12:51 Calcium 7.4 mg/dL (8.4-10.2) L 05/14/22 12:51 Phosphorus 3.9 mg/dL (2.5-4.5) 05/14/22 13:50 Magnesium 2.6 mg/dL (1.6-2.3) H 05/14/22 12:51 Total Bilirubin 0.8 mg/dL (0.2-1.3) 05/14/22 12:51 AST 235 U/L (17-59) H 05/14/22 12:51 ALT 37 U/L (4-49) 05/14/22 12:51 Alkaline Phosphatase 93 U/L (38-126) 05/14/22 12:51 Troponin I 0.015 ng/mL (0.000-0.034) 05/14/22 12:51 NT-Pro-B Natriuret Pep 1620 pg/mL 05/14/22 12:51 Total Protein 6.3 g/dL (6.3-8.2) 05/14/22 12:51 Albumin 3.2 g/dL (3.5-5.0) L 05/14/22 12:51 Lipase 117 U/L (23-300) 05/14/22 12:51 PT/INR, D-dimer PT 12.4 sec (9.0-12.0) H 05/14/22 12:51 INR 1.2 (<1.2) H 05/14/22 12:51 D-Dimer 2.96 mg/L FEU (<0.60) H 05/14/22 12:51 Abnormal lab findings: Abnormal Labs 05/14/22 05/14/22 05/14/22 12:51 12:51 12:51 WBC 65.6 H* RBC 1.42 L Hgb 4.9 L* Hct 14.2 L* MCV 100.1 H RDW 19.7 H Plt Count 49 L Blast Cells % 47 H* Neutrophils # (Manual) 0.66 L Lymphocytes # (Manual) 33.46 H Monocytes # (Manual) 1.97 H Blast Cells # (Man) 30.83 H PT 12.4 H INR 1.2 H D-Dimer 2.96 H Sodium 131 L Carbon Dioxide 20 L BUN 26 H Glucose 118 H Calcium 7.4 L Magnesium 2.6 H AST 235 H Albumin 3.2 L 05/14/22 13:50 WBC 64.6 H* RBC 1.29 L Hgb 4.3 L* Hct 12.9 L* MCV RDW 19.7 H Plt Count 47 L Blast Cells % 57 H* Neutrophils # (Manual) 0.65 L Lymphocytes # (Manual) 27.13 H Monocytes # (Manual) Blast Cells # (Man) 36.82 H PT INR D-Dimer Sodium Carbon Dioxide BUN Glucose Calcium Magnesium AST Albumin - Diagnostic Findings Chest x-ray: image reviewed Assessment and Plan Plan: Acute leukemia, 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 Fungal/other which is thick infection and felt to be less likely. Acute hypoxic respiratory failure currently on 2 L of O2 nasal cannula Episodes of fever likely secondary to above Coronary artery disease Hypertension Hyperlipidemia Abdominal aortic aneurysm, post in the Khadar stent grafting Fibromyalgia Chronic pain COPD Plan Check blood cultures 2 The patient will be covered with broad-spectrum antibiotics and I would suggest a combination of cefepime vancomycin and we also decided to cover him with voriconazole regarding the possibility of an acute fungal pulmonary infection covering for Aspergillus IV fluids Type and cross and transfuse this patient with 2 units of packed RBC, irradiated Check pro calcitonin level I had a lengthy discussion with the patient's family at the bedside. 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 Family showed interest of being transferred to another facility where higher level of care is provided and AML patient's. We will work on transferring this patient to,[facility]. Meanwhile, I asked patient will also be placed to hematology oncology locally. Patient overall carries a very poor prognosis. Ankle
[2022-05-14] MEDS ORDERED: fentaNYL (PF) 50 MCG/ML 2 ML AMP IVP PRN (18:17)
[2022-05-14] MEDS ORDERED: HYDROcodone/APAP 10-325MG 1 EACH TAB PO ONE (20:27)
[2022-05-14] MEDS ORDERED: CEFEPIME 2 GM in SODIUM CHLORIDE 0.9% 100 ML IVPB ONE (21:00)
[2022-05-14] MEDS ORDERED: SODIUM CHLORIDE 0.9% IVPB ONE (21:30)
[2022-05-14] MEDS ORDERED: VORICONAZOLE IVPB ONE (21:30)
--- NOTE | 2022-05-14 22:06 | P.HPIM ---
History of Present Illness H&P Date: 05/14/22 Chief Complaint: Shortness of breath Patient is a 71-year-old male with a past medical history of coronary artery disease, hypertension, hyperlipidemia, COPD, rheumatoid arthritis, abdominal aortic aneurysm, chronic back pain and hip pain, fibromyalgia, anxiety and currently everyday smoker and occasional marijuana use presents to ER with complaints of generalized weakness, lethargy and worsening shortness of breath. Patient states that he has been having symptoms for the past few weeks. Patient was given Medrol Dosepak and breathing treatments as an outpatient basis. Patient went to his physician and lab work-up done which showed low hemoglobin level and other laboratory abnormalities. Patient was sent to ER for further evaluation. Denies any complaints of chest pain. No cough or sputum production. Patient did have fever as an outpatient. On admission patient was hypotensive with blood pressure 86/49 pulse 60 respiration 22 pulse ox 92% on room air. EKG showed sinus rhythm CT angiogram of the chest was done showed no evidence of PE. 5 total spiculated masslike consolidations within the lungs concerning for malignancy. Consider further evaluation with PET/CT and tissue sampling. Mediastinal and bilateral hilar adenopathy suspicious for metastasis. Moderate to severe COPD changes. Reticular groundglass opacities throughout the lungs which may result in a trapping versus pneumonitis. Laboratory data showed WBC 65.6 hemoglobin 4.9 and platelets 49 and blast cells 47 lymphocytes 33.4 INR 1.2 D-dimer level is 2.96 Sodium 134 potassium 4.4 chloride 102 bicarb is 20 BUN 26 and creatinine 0.95 and calcium 7.4 and phosphorus 3.9 magnesium 2.6 AST 235 ALT 37 and alk phos 93 troponin x1 negative proBNP 1620 and albumin 3.2 and procalcitonin level is 0.36. Coronavirus PCR not detected. Review of Systems Constitutional: Patient does have subjective fever and chills generalized weakness and lethargy. Abdomen: Patient denied any nausea or vomiting or abd. pain Cardiovascular: Patient denies any chest pain. Does help short of breath no palpitations. Respiratory: patient denied any cough . no sputum production. Patient does have worsening shortness of breath Neurologic: Patient denied any numbness or tingling headache. Musculoskeletal: Patient denies any complaints of joint swelling or deformity. Skin: Negative Psychiatric: Negative Endocrine: No heat or cold intolerance. No recent weight gain. Genitourinary: No dysuria or hematuria. All other 14 point ROS negative except the above Past Medical History Past Medical History: Coronary Artery Disease (CAD), COPD, Hyperlipidemia, Hypertension, Rheumatoid Arthritis (RA) Additional Past Medical History / Comment(s): 5CM abd aneurysm MEASURED ON ULTRA SOUND BY DR. PADILLA 09/11/18- 6 MONTHS AGO WAS MEASURED AT 4/.8 CM. chronic back and hip pain. positive cologard test. HEMORRHOIDS. fibromyalgia History of Any Multi-Drug Resistant Organisms: None Reported Past Surgical History: Heart Catheterization, Joint Replacement Additional Past Surgical History / Comment(s): rt paula, lt knee sx, eugenie carpal tunnel. lt wrist sx, sx for fx femur after hip sx Past Anesthesia/Blood Transfusion Reactions: No Reported Reaction Past Psychological History: Anxiety Smoking Status: Current every day smoker Past Alcohol Use History: None Reported Past Drug Use History: Marijuana - Past Family History Brother(s) Family Medical History: Cancer Additional Family Medical History / Comment(s): 2 brothers that from liver cancer AGE 45 AND 50 POSSIBLY R/T TRANSFUSIONS Medications and Allergies Home Medications Medication Instructions Recorded Confirmed Type HYDROcodone/APAP 7.5-325MG [[place] 1 tab PO TID 10/29/16 05/14/22 History 7.5-325] atenoloL [Tenormin] 50 mg PO HS 10/29/16 05/14/22 History Ibuprofen [Motrin] 600 mg PO Q8HR PRN 09/12/18 05/14/22 History Aspirin 81 mg PO HS 05/14/22 05/14/22 History Atorvastatin [Lipitor] 20 mg PO HS 05/14/22 05/14/22 History Cholecalciferol (Vitamin D3) 75 mcg PO DAILY 05/14/22 05/14/22 History [Vitamin D3 (3000 Iu)] Multivitamins, Thera [Multivitamin 1 tab PO DAILY 05/14/22 05/14/22 History (formulary)] Omeprazole [PriLOSEC] 20 mg PO DAILY PRN 05/14/22 05/14/22 History lisinopriL [Zestril] 10 mg PO HS 05/14/22 05/14/22 History Allergies Allergy/AdvReac Type Severity Reaction Status Date / Time No Known Allergies Allergy Verified 05/14/22 14:24 Physical Exam Vitals: Vital Signs Temp Pulse Pulse Resp BP Pulse Ox 05/14/22 16:00 86 13 111/61 99 05/14/22 15:00 77 20 102/56 98 05/14/22 14:00 74 13 81/51 96 05/14/22 13:56 75 26 H 81/51 97 05/14/22 13:02 84 24 107/61 95 05/14/22 13:00 86 17 88/45 95 05/14/22 12:58 87 05/14/22 12:57 83 24 88/45 96 05/14/22 12:14 98.5 F 60 22 86/49 95 Intake and Output 05/14/22 05/14/22 05/14/22 06:59 14:59 22:59 Other: Weight 91.626 kg PHYSICAL EXAMINATION: Patient is lying in the bed comfortably, no acute distress, awake alert and oriented.. HEENT: Normocephalic. Neck is supple. Pupils reactive. Nostrils clear. Oral cavity is moist. Neck reveals no JVD, carotid bruits, or thyromegaly. CHEST EXAMINATION: Trachea is central. Symmetrical expansion. Bilateral expiratory wheezing and scattered rhonchi.. CARDIAC: Normal S1, S2 with no gallops. No murmurs ABDOMEN: Soft. Bowel sounds present. Nontender. No organomegaly. No abdominal bruits. Extremities: reveal no edema. No clubbing or cyanosis Neurologically awake, alert, oriented x3 with well-coordinated movements. No focal deficits noted Skin: No rash or skin lesions. Psychiatric: Coperative. Nonsuicidal, Musculoskeletal: No joint swelling or deformity. Normal range of motion. Results CBC & Chem 7: 05/14/22 13:50 05/14/22 12:51 Labs: Abnormal Lab Results - Last 24 Hours (Table) 05/14/22 05/14/22 05/14/22 Range/Units 12:51 12:51 12:51 WBC 65.6 H* (3.8-10.6) k/uL RBC 1.42 L (4.30-5.90) m/uL Hgb 4.9 L* (13.0-17.5) gm/dL Hct 14.2 L* (39.0-53.0) % MCV 100.1 H (80.0-100.0) fL RDW 19.7 H (11.5-15.5) % Plt Count 49 L (150-450) k/uL Blast Cells % 47 H* % Neutrophils # (Manual) 0.66 L (1.3-7.7) k/uL Lymphocytes # (Manual) 33.46 H (1.0-4.8) k/uL Monocytes # (Manual) 1.97 H (0-1.0) k/uL Blast Cells # (Man) 30.83 H (0) k/uL PT 12.4 H (9.0-12.0) sec INR 1.2 H (<1.2) D-Dimer 2.96 H (<0.60) mg/L FEU Sodium 131 L (137-145) mmol/L Carbon Dioxide 20 L (22-30) mmol/L BUN 26 H (9-20) mg/dL Glucose 118 H (74-99) mg/dL Calcium 7.4 L (8.4-10.2) mg/dL Magnesium 2.6 H (1.6-2.3) mg/dL AST 235 H (17-59) U/L Albumin 3.2 L (3.5-5.0) g/dL 05/14/22 Range/Units 13:50 WBC 64.6 H* (3.8-10.6) k/uL RBC 1.29 L (4.30-5.90) m/uL Hgb 4.3 L* (13.0-17.5) gm/dL Hct 12.9 L* (39.0-53.0) % MCV (80.0-100.0) fL RDW 19.7 H (11.5-15.5) % Plt Count 47 L (150-450) k/uL Blast Cells % 57 H* % Neutrophils # (Manual) 0.65 L (1.3-7.7) k/uL Lymphocytes # (Manual) 27.13 H (1.0-4.8) k/uL Monocytes # (Manual) (0-1.0) k/uL Blast Cells # (Man) 36.82 H (0) k/uL PT (9.0-12.0) sec INR (<1.2) D-Dimer (<0.60) mg/L FEU Sodium (137-145) mmol/L Carbon Dioxide (22-30) mmol/L BUN (9-20) mg/dL Glucose (74-99) mg/dL Calcium (8.4-10.2) mg/dL Magnesium (1.6-2.3) mg/dL AST (17-59) U/L Albumin (3.5-5.0) g/dL Thrombosis Risk Factor Assmnt - DVT/VTE Prophylaxis DVT/VTE Prophylaxis: Pharmacologic Prophylaxis ordered Assessment and Plan Assessment: Acute leukemia with blast cells 57%- New Diagnosis Severe anemia with hemoglobin 4.9 and thrombocytopenia Shortness of breath with possible pneumonitis/pneumonia with fever on outpatient basis Acute hypoxic respiratory failure secondary to above Spiculated masslike consolidations within the lungs concerning for malignancy Mediastinal and bilateral hilar adenopathy suspicious for brain metastasis. COPD Currently ongoing nicotine addiction Hypertension Hyperlipidemia Coronary artery disease Abdominal aortic aneurysm status post stent graft. Fibromyalgia Chronic low back pain DVT prophylaxis with heparin subcu Plan: Patient will be continued on IV hydration and will be started on broad-spectrum antibiotics, vancomycin, cefepime and also voriconazole. PRBC transfusion with irrigated cells was ordered. Due to acute leukemia with greater than 50% blast cells and due to poor prognosis discussed the family regarding possible transfer to [facility] in [place]. Discussed with the pulmonary and oncology team. patient will be transferred to tertiary care facility once bed is available. Prognosis poor at this time. Time with Patient: Greater than 30
[2022-05-15 00:02] VITALS: BP 126/66; PULSE 92; RESP 16
[2022-05-15] MEDS ORDERED: VANCOMYCIN 1,500 MG in SODIUM CHLORIDE 0.9% 500 ML 500 ML IVPB SCH (04:00)
[2022-05-15] MEDS ORDERED: SODIUM CHLORIDE 0.9% IVPB SCH (09:00)
[2022-05-15] MEDS ORDERED: CEFEPIME 2 GM in SODIUM CHLORIDE 0.9% 100 ML IVPB SCH (09:00)
[2022-05-15] MEDS ORDERED: VORICONAZOLE IVPB SCH (09:00)
== END 2022-05-14 21:00 | disposition other institution (70) ==
LOC: EC 12:09
DX: R06.09 Other forms of dyspnea (principal); R91.8 Other nonspecific abnormal finding of lung field; D72.829 Elevated white blood cell count, unspecified; D69.6 Thrombocytopenia, unspecified; D64.9 Anemia, unspecified; R07.9 Chest pain, unspecified; I25.10 Atherosclerotic heart disease of native coronary artery without angina pectoris; E78.5 Hyperlipidemia, unspecified; I10 Essential (primary) hypertension; M06.9 Rheumatoid arthritis, unspecified; F41.9 Anxiety disorder, unspecified; F17.200 Nicotine dependence, unspecified, uncomplicated; F12.90 Cannabis use, unspecified, uncomplicated; Z79.82 Long term (current) use of aspirin; Z79.899 Other long term (current) drug therapy; Z20.822 Contact with and (suspected) exposure to COVID-19
CPT/HCPCS: 96365 ×2; 96375 ×2; 99291 ×2; 99292 ×2; 99285; 36415; 93005; 86900; 86901; 85379; 83880; 80053; 83690; 83735; 84100; 84484; 85025; 85610; 85730; 86850; 87040; 84145; 87635; 71275; J3370; J0692; J3010; Q9967; 86920; 96367